=== PATIENT | female | born 1985 | race Two or more races ===

== ENCOUNTER 2018-10-27 03:50 | Outpatient (CLI) | payer OTHER | END 2018-10-27 23:59 | disposition home or self-care (01) | LOC: RAD 03:50 | PROVIDERS: ATTEND Physician Assistant Medical | DX: J32.0 Chronic maxillary sinusitis (principal) | CPT/HCPCS: 70486 ==

== ENCOUNTER 2019-08-13 18:47 | Emergency (ER) | payer BC, OTHER ==
[~2019-08-13] VITALS: Ht 160 cm; Wt 122.7 kg
[2019-08-13 19:14] LABS: BASOPHILS % (AUTO) 0.4 % (0-1); EOSINOPHILS # (AUTO) 0.1 X10'3 (0-0.9); EOSINOPHILS % (AUTO) 0.8 % (0-6); HEMOGLOBIN 13.4 g/dl (12.0-16.0); LYMPHOCYTES # (AUTO) 2.8 X10'3 (1.1-4.8); LYMPHOCYTES % (AUTO) 38.7 % (21-51); MEAN CORPUSCULAR HEMOGLOBIN 29.5 PG (27.0-31.0); MEAN CORPUSCULAR HGB CONC 33.4 g/dL (33.0-36.5); MEAN CORPUSCULAR VOLUME 88.3 FL (78-98); MEAN PLATELET VOLUME 7.4 FL (7.4-10.4); MONOCYTES # (AUTO) 0.3 X10'3 (0-0.9); MONOCYTES % (AUTO) 4.8 % (2-12); NEUTROPHILS % (AUTO) 55.3 % (42-75); PLATELET COUNT 309 X10'3 (140-440); RED BLOOD COUNT 4.53 X10'6 (4.20-5.60); RED CELL DISTRIBUTION WIDTH 13.5 % (11.5-14.5); WHITE BLOOD COUNT 7.2 X10'3 (4.5-11.0)
[2019-08-13 19:28] LABS: ALANINE AMINOTRANSFERASE 58 U/L (12-78); ALBUMIN 4.1 G/DL (3.4-5.0); ALKALINE PHOSPHATASE 75 IU/L (46-116); ANION GAP 12 (8-16); ASPARTATE AMINO TRANSFERASE 45 U/L (10-37); BILIRUBIN,TOTAL 0.3 MG/DL (0.1-1.0); BLOOD UREA NITROGEN 12 MG/DL (7-18); BUN/CREATININE RATIO 11.7 (6.6-38.0); CALCIUM 8.8 MG/DL (8.5-10.1); CHLORIDE 106 MMOL/L (99-107); CREATININE 1.03 MG/DL (0.40-0.90); GLUCOSE 97 MG/DL (70-104); LIPASE 89 U/L (73-393); POTASSIUM 4.3 MMOL/L (3.5-5.1); SODIUM 144 MMOL/L (135-145); TOTAL CARBON DIOXIDE 26.1 MMOL/L (24-32); TOTAL PROTEIN 8.4 G/DL (6.4-8.2); eGFR 63 ML/MIN
[2019-08-13 19:36] LABS: CLARITY,URINE SLIGHTLY CLOUDY (Clear); COLOR,URINE YELLOW (Yellow); GLUCOSE, URINE NEGATIVE (Neg); KETONES,URINE NEGATIVE (Neg); LEUKOCYTE ESTERASE ,URINE NEGATIVE (Neg); NITRITES, URINE NEGATIVE (Neg); OCCULT BLOOD,URINE LARGE (Neg); PH,URINE 5.5 (4.8-8.0); PROTEIN,URINE TRACE mg/dl (Neg); UROBILINOGEN,URINE 0.2 E.U/dL (0.2-1.0)
[2019-08-13] MEDS ORDERED: ketorolac tromethamine 15mg/ml inj. IV ONE (19:40)
[2019-08-13 19:44] LABS: UA COLLECTION TYPE CLN CATCH MIDSTREAM
[2019-08-13 19:46] LABS: BACTERIA,URINE FEW /HPF (Neg); MUCUS STRANDS FEW /LPF (Neg); RBC,URINE 20-50 /HPF (0-2); SQUAMOUS EPITHELIAL CELL,UR MODERATE /LPF (FEW); WBC,URINE NONE SEEN /HPF (0-4)
[2019-08-13 19:50] LABS: URINE HCG NEGATIVE (NEG)
[2019-08-13] MEDS ORDERED: FLO0.4C PO (20:44)
[2019-08-13 20:55] VITALS: BP 124/86
[2019-08-14] MEDS ORDERED: NAPR-56 PO (17:08)
== END 2019-08-13 20:56 | disposition home or self-care (01) ==
LOC: ER 18:48
DX: N20.1 Calculus of ureter (principal); G89.29 Other chronic pain; F32.9 Major depressive disorder, single episode, unspecified; R10.11 Right upper quadrant pain; Z72.89 Other problems related to lifestyle; Z79.899 Other long term (current) drug therapy
CPT/HCPCS: 36415; 74176; 76700; 80053; 81001; 81025; 83690; 85025; 96374; 99285; J1885

== ENCOUNTER 2019-08-14 13:15 | Emergency (ER) | payer OTHER ==
[~2019-08-14] VITALS: Ht 160 cm; Wt 125.9 kg
[~2019-08-14 13:15] MED LIST: FLO0.4C PO
[2019-08-14 14:00] LABS: URINE HCG NEGATIVE (NEG)
[2019-08-14 14:02] LABS: CLARITY,URINE CLOUDY (Clear); COLOR,URINE YELLOW (Yellow); GLUCOSE, URINE NEGATIVE (Neg); KETONES,URINE NEGATIVE (Neg); LEUKOCYTE ESTERASE ,URINE NEGATIVE (Neg); NITRITES, URINE NEGATIVE (Neg); OCCULT BLOOD,URINE MODERATE (Neg); PROTEIN,URINE NEGATIVE (Neg); UROBILINOGEN,URINE 0.2 E.U/dL (0.2-1.0)
[2019-08-14 14:08] LABS: UA COLLECTION TYPE CLN CATCH MIDSTREAM
[2019-08-14 14:18] LABS: SQUAMOUS EPITHELIAL CELL,UR MANY /LPF (FEW)
[2019-08-14 14:19] LABS: BACTERIA,URINE 4+ /HPF (Neg); MUCUS STRANDS FEW /LPF (Neg)
[2019-08-14] MEDS ORDERED: ketorolac trometh. 30mg/ml inj. IV ONE (14:45)
[2019-08-14] MEDS ORDERED: normal saline 1000ML IV soln IVB ONE (14:45)
[2019-08-14] MEDS: LIDOcaine 2% (20 mg/ml) 5ml cardiac syringe IV ONE ×2 (15:10→15:49)
--- NOTE | 2019-08-14 15:19 | NUR ---
PT. REFUSED 2 TIMES TO HAVE LAB DRAW ANY BLOOD. OLGA DELGADO NOTIFIED AND ASKED TO TALK TO HIS PT.
[2019-08-14 15:25] LABS: BASOPHILS % (AUTO) 0.2 % (0-1); EOSINOPHILS % (AUTO) 0.2 % (0-6); HEMATOCRIT 37.5 % (35.0-45.0); HEMOGLOBIN 12.5 g/dl (12.0-16.0); LYMPHOCYTES # (AUTO) 2.1 X10'3 (1.1-4.8); LYMPHOCYTES % (AUTO) 20.7 % (21-51); MEAN CORPUSCULAR HEMOGLOBIN 29.5 PG (27.0-31.0); MEAN CORPUSCULAR HGB CONC 33.3 g/dL (33.0-36.5); MEAN CORPUSCULAR VOLUME 88.6 FL (78-98); MEAN PLATELET VOLUME 7.3 FL (7.4-10.4); MONOCYTES # (AUTO) 0.5 X10'3 (0-0.9); MONOCYTES % (AUTO) 5.1 % (2-12); NEUTROPHILS # (AUTO) 7.3 X10'3 (1.8-7.7); NEUTROPHILS % (AUTO) 73.8 % (42-75); PLATELET COUNT 282 X10'3 (140-440); RED BLOOD COUNT 4.23 X10'6 (4.20-5.60); RED CELL DISTRIBUTION WIDTH 13.8 % (11.5-14.5)
[2019-08-14 15:42] LABS: ALANINE AMINOTRANSFERASE 48 U/L (12-78); ALBUMIN 3.7 G/DL (3.4-5.0); ALBUMIN/GLOBULIN RATIO 0.9 (1.1-1.5); ALKALINE PHOSPHATASE 70 IU/L (46-116); ANION GAP 11 (8-16); ASPARTATE AMINO TRANSFERASE 30 U/L (10-37); BILIRUBIN,TOTAL 0.1 MG/DL (0.1-1.0); BLOOD UREA NITROGEN 14 MG/DL (7-18); BUN/CREATININE RATIO 12.4 (6.6-38.0); CALCIUM 8.9 MG/DL (8.5-10.1); CHLORIDE 105 MMOL/L (99-107); CREATININE 1.13 MG/DL (0.40-0.90); GLUCOSE 120 MG/DL (70-104); POTASSIUM 4.4 MMOL/L (3.5-5.1); SODIUM 142 MMOL/L (135-145); TOTAL CARBON DIOXIDE 25.6 MMOL/L (24-32); TOTAL PROTEIN 7.7 G/DL (6.4-8.2); eGFR 56 ML/MIN
[2019-08-14] MEDS ORDERED: NAPR-56 PO (17:08)
[2019-08-14] MEDS ORDERED: HYDROcodone/acetaminophen 10/325mg tab PO ONE (17:10)
--- NOTE | 2019-08-14 17:35 | NUR ---
pt refused norco 10 says it makes her vomit, she has had bad experiences with norco, doesn't want
[2019-08-14 17:41] VITALS: BP 143/92
== END 2019-08-14 17:43 | disposition home or self-care (01) ==
LOC: ER 13:16
DX: N23 Unspecified renal colic (principal); G89.29 Other chronic pain; R11.2 Nausea with vomiting, unspecified; R42 Dizziness and giddiness; F41.9 Anxiety disorder, unspecified; F32.9 Major depressive disorder, single episode, unspecified; Z79.899 Other long term (current) drug therapy
CPT/HCPCS: 36415; 80053; 81001; 81025; 85025; 96374; 96375; 99285; J1885; J7030

== ENCOUNTER 2019-08-20 02:45 | Observation (INO) | payer BC, OTHER ==
[~2019-08-20] VITALS: Ht 160 cm; Wt 122.7 kg
[~2019-08-20 02:45] MED LIST changes: +NAPR-56 PO
[2019-08-20 03:59] LABS: BASOPHILS % (AUTO) 0.4 % (0-1); EOSINOPHILS # (AUTO) 0.1 X10'3 (0-0.9); EOSINOPHILS % (AUTO) 0.9 % (0-6); HEMATOCRIT 37.6 % (35.0-45.0); HEMOGLOBIN 12.5 g/dl (12.0-16.0); LYMPHOCYTES # (AUTO) 3.4 X10'3 (1.1-4.8); LYMPHOCYTES % (AUTO) 43.4 % (21-51); MEAN CORPUSCULAR HEMOGLOBIN 29.3 PG (27.0-31.0); MEAN CORPUSCULAR HGB CONC 33.3 g/dL (33.0-36.5); MEAN PLATELET VOLUME 7.2 FL (7.4-10.4); MONOCYTES # (AUTO) 0.4 X10'3 (0-0.9); MONOCYTES % (AUTO) 5.4 % (2-12); NEUTROPHILS # (AUTO) 3.9 X10'3 (1.8-7.7); NEUTROPHILS % (AUTO) 49.9 % (42-75); PLATELET COUNT 278 X10'3 (140-440); RED BLOOD COUNT 4.27 X10'6 (4.20-5.60); RED CELL DISTRIBUTION WIDTH 13.9 % (11.5-14.5); WHITE BLOOD COUNT 7.9 X10'3 (4.5-11.0)
[2019-08-20] MEDS ORDERED: ketorolac trometh. 30mg/ml inj. IV STA (03:59)
[2019-08-20] MEDS ORDERED: normal saline 1000ml 1,000 ML IVB ONE (03:59)
[2019-08-20 04:12] LABS: ALANINE AMINOTRANSFERASE 40 U/L (12-78); ALBUMIN 3.8 G/DL (3.4-5.0); ALBUMIN/GLOBULIN RATIO 0.9 (1.1-1.5); ALKALINE PHOSPHATASE 64 IU/L (46-116); ANION GAP 9 (8-16); ASPARTATE AMINO TRANSFERASE 30 U/L (10-37); BILIRUBIN,TOTAL 0.2 MG/DL (0.1-1.0); BLOOD UREA NITROGEN 15 MG/DL (7-18); BUN/CREATININE RATIO 15.8 (6.6-38.0); CALCIUM 8.8 MG/DL (8.5-10.1); CHLORIDE 103 MMOL/L (99-107); CREATININE 0.95 MG/DL (0.40-0.90); GLUCOSE 88 MG/DL (70-104); LIPASE 94 U/L (73-393); POTASSIUM 3.9 MMOL/L (3.5-5.1); SODIUM 139 MMOL/L (135-145); TOTAL CARBON DIOXIDE 26.7 MMOL/L (24-32); TOTAL PROTEIN 7.9 G/DL (6.4-8.2); eGFR 69 ML/MIN
[2019-08-20] MEDS ORDERED: fentaNYL/PF 50MCG/1 ML 2ML syringe IV PRN (04:20)
[2019-08-20] MEDS ORDERED: normal saline 1000ML IV soln IVB ONE (04:20)
[2019-08-20] MEDS ORDERED: ondansetron/PF 4mg/2ml inj IV PRN ×2 (04:20→04:55)
[2019-08-20] MEDS ORDERED: diazepam inj 5 MG/ML inj. IV ONE (04:20)
[2019-08-20] MEDS ORDERED: potassium CL 10mEq/100ml bag 100 ML IV PRN ×2 (04:55)
[2019-08-20] MEDS ORDERED: magnesium 2GM in 50ml NS 50 ML IV PRN (04:55)
[2019-08-20] MEDS ORDERED: mag hydrox/Alum hydrox/simeth 30ml oral suspension PO PRN (04:55)
[2019-08-20] MEDS ORDERED: magnesium hydroxide 30ml (MOM) UD suspension PO PRN (04:55)
[2019-08-20] MEDS ORDERED: magnesium Cl slow-release 64mg tablet PO PRN (04:55)
[2019-08-20] MEDS ORDERED: acetaminophen 325mg tablet PO PRN (04:55)
[2019-08-20] MEDS ORDERED: potassium Cl 20 mEq SR tablet PO PRN ×2 (04:55)
[2019-08-20] MEDS ORDERED: HYDROmorphone 1 mg/ml syringe IV PRN (04:55)
[2019-08-20] MEDS ORDERED: magnesium 4gm in 100ml NS 100 ML IV PRN (04:55)
[2019-08-20 05:44] LABS: URINE HCG NEGATIVE (NEG)
--- NOTE | 2019-08-20 05:53 | NUR ---
TRANSFER TO UPSTAIRS TO TAKE PLACE AFTER SHIFT CHANGE.
[2019-08-20 06:01] LABS: CLARITY,URINE SLIGHTLY CLOUDY (Clear); COLOR,URINE STRAW (Yellow); GLUCOSE, URINE NEGATIVE (Neg); KETONES,URINE NEGATIVE (Neg); LEUKOCYTE ESTERASE ,URINE NEGATIVE (Neg); NITRITES, URINE NEGATIVE (Neg); OCCULT BLOOD,URINE MODERATE (Neg); PROTEIN,URINE NEGATIVE (Neg); UROBILINOGEN,URINE 0.2 E.U/dL (0.2-1.0)
[2019-08-20 06:08] LABS: UA COLLECTION TYPE CLN CATCH MIDSTREAM
[2019-08-20 06:09] LABS: SQUAMOUS EPITHELIAL CELL,UR MANY /LPF (FEW)
[2019-08-20 06:10] LABS: BACTERIA,URINE 2+ /HPF (Neg); RBC,URINE 0-2 /HPF (0-2); WBC,URINE 0-4 /HPF (0-4)
--- NOTE | 2019-08-20 07:00 | NUR ---
Received report from ED RNSoha.
[2019-08-20 07:10] VITALS: BP 151/70
[2019-08-20] MEDS: normal saline 1000ml 1,000 ML IV SCH ×3 (07:42→17:15)
[2019-08-20] MEDS: K and/or MAG REPLACEMENT MC SCH ×2 (08:00→19:36)
[2019-08-20] MEDS: ALPRAZolam 0.5mg tablet PO PRN (08:40)
[2019-08-20] MEDS: ketorolac trometh. 30mg/ml inj. IV PRN ×2 (09:47→17:42)
[2019-08-20] MEDS: tamsulosin 0.4mg capsule PO SCH ×2 (09:47→21:02)
--- NOTE | 2019-08-20 10:50 | NUR ---
Per Dr Burks he is aware patient received dose of 0.4mg Flomax this morning and has a dose ordered for tonight, then medication is once a day HS. Per Dr Burks that is fine to get the extra dose.
[2019-08-20] MEDS ORDERED: ALPR1TAB7 PO (12:12)
[2019-08-20 12:23] VITALS: BP 101/49
--- NOTE | 2019-08-20 14:00 | NUR ---
Pt refused MRSA nasal swab
[2019-08-20] MEDS: cetirizine 10mg tablet PO SCH (17:40)
[2019-08-20] MEDS: acetaminophen 325mg tablet PO PRN (17:41)
[2019-08-20 18:00] VITALS: BP 126/62
--- NOTE | 2019-08-20 18:10 | NUR ---
Problems reprioritized. Patient report given, questions answered & plan of care reviewed with FLORES Malcolm.
--- NOTE | 2019-08-20 19:00 | NUR ---
Patient in room [facility]. I have received report from Azeb TANNER and had the opportunity to ask questions and assume patient care.
[2019-08-21] VITALS (16 sets, daily range): BP systolic 95–150; BP diastolic 52–99
[2019-08-21] MEDS: ketorolac trometh. 30mg/ml inj. IV PRN ×3 (01:38→21:08)
[2019-08-21] MEDS: normal saline 1000ml 1,000 ML IV SCH ×2 (04:25→16:36)
[2019-08-21 06:31] LABS: BASOPHILS % (AUTO) 0.2 % (0-1); EOSINOPHILS # (AUTO) 0.1 X10'3 (0-0.9); EOSINOPHILS % (AUTO) 0.8 % (0-6); HEMATOCRIT 33.5 % (35.0-45.0); HEMOGLOBIN 11.1 g/dl (12.0-16.0); LYMPHOCYTES # (AUTO) 3.4 X10'3 (1.1-4.8); LYMPHOCYTES % (AUTO) 46.8 % (21-51); MEAN CORPUSCULAR HEMOGLOBIN 29.1 PG (27.0-31.0); MEAN CORPUSCULAR HGB CONC 33.2 g/dL (33.0-36.5); MEAN CORPUSCULAR VOLUME 87.8 FL (78-98); MEAN PLATELET VOLUME 7.3 FL (7.4-10.4); MONOCYTES # (AUTO) 0.4 X10'3 (0-0.9); MONOCYTES % (AUTO) 5.2 % (2-12); NEUTROPHILS # (AUTO) 3.4 X10'3 (1.8-7.7); PLATELET COUNT 276 X10'3 (140-440); RED BLOOD COUNT 3.82 X10'6 (4.20-5.60); RED CELL DISTRIBUTION WIDTH 13.8 % (11.5-14.5); WHITE BLOOD COUNT 7.2 X10'3 (4.5-11.0)
--- NOTE | 2019-08-21 06:31 | NUR ---
Problems reprioritized. Patient report given, questions answered & plan of care reviewed with Brit TANNER.
[2019-08-21 06:47] LABS: ALANINE AMINOTRANSFERASE 34 U/L (12-78); ALBUMIN 3.2 G/DL (3.4-5.0); ALKALINE PHOSPHATASE 60 IU/L (46-116); ANION GAP 8 (8-16); ASPARTATE AMINO TRANSFERASE 20 U/L (10-37); BILIRUBIN,TOTAL 0.2 MG/DL (0.1-1.0); BLOOD UREA NITROGEN 12 MG/DL (7-18); BUN/CREATININE RATIO 16.2 (6.6-38.0); CALCIUM 8.5 MG/DL (8.5-10.1); CHLORIDE 108 MMOL/L (99-107); CREATININE 0.74 MG/DL (0.40-0.90); GLUCOSE 94 MG/DL (70-104); POTASSIUM 3.8 MMOL/L (3.5-5.1); SODIUM 143 MMOL/L (135-145); TOTAL CARBON DIOXIDE 26.7 MMOL/L (24-32); TOTAL PROTEIN 6.5 G/DL (6.4-8.2); eGFR > 90 ML/MIN
[2019-08-21] MEDS: K and/or MAG REPLACEMENT MC SCH ×2 (08:00→20:00)
[2019-08-21] MEDS: cetirizine 10mg tablet PO SCH (09:39)
[2019-08-21] MEDS ORDERED: FLUO-12 PO (09:44)
[2019-08-21] MEDS: acetaminophen 325mg tablet PO PRN ×2 (09:52→22:47)
[2019-08-21] MEDS: ALPRAZolam 0.5mg tablet PO PRN (11:09)
--- NOTE | 2019-08-21 11:23 | NUR ---
Dr. Burks called to say that he took a look at the abdominal CT scan and notes that the kidney stone is still in place. States to let the pt. become aware and notify her that he will be on the floor at a later time to discuss the proceeding to remove the stone.
[2019-08-21] MEDS ORDERED: ringers solution, lacted 1,000 ML IV SCH ×2 (17:15→18:29)
[2019-08-21] MEDS ORDERED: famotidine/PF 10 mg/ml inj IV ONE ×2 (17:20→18:40)
[2019-08-21 17:38] LABS: BASOPHILS % (AUTO) 0.4 % (0-1); EOSINOPHILS # (AUTO) 0.1 X10'3 (0-0.9); EOSINOPHILS % (AUTO) 0.9 % (0-6); HEMATOCRIT 37.9 % (35.0-45.0); HEMOGLOBIN 12.7 g/dl (12.0-16.0); LYMPHOCYTES # (AUTO) 2.9 X10'3 (1.1-4.8); LYMPHOCYTES % (AUTO) 38.8 % (21-51); MEAN CORPUSCULAR HEMOGLOBIN 29.5 PG (27.0-31.0); MEAN CORPUSCULAR HGB CONC 33.4 g/dL (33.0-36.5); MEAN CORPUSCULAR VOLUME 88.5 FL (78-98); MEAN PLATELET VOLUME 7.1 FL (7.4-10.4); MONOCYTES # (AUTO) 0.4 X10'3 (0-0.9); MONOCYTES % (AUTO) 4.7 % (2-12); NEUTROPHILS # (AUTO) 4.2 X10'3 (1.8-7.7); NEUTROPHILS % (AUTO) 55.2 % (42-75); PLATELET COUNT 290 X10'3 (140-440); RED BLOOD COUNT 4.29 X10'6 (4.20-5.60); RED CELL DISTRIBUTION WIDTH 13.8 % (11.5-14.5); WHITE BLOOD COUNT 7.5 X10'3 (4.5-11.0)
[2019-08-21 17:51] LABS: ALANINE AMINOTRANSFERASE 37 U/L (12-78); ALBUMIN 3.6 G/DL (3.4-5.0); ALBUMIN/GLOBULIN RATIO 0.9 (1.1-1.5); ALKALINE PHOSPHATASE 66 IU/L (46-116); ANION GAP 8 (8-16); ASPARTATE AMINO TRANSFERASE 27 U/L (10-37); BILIRUBIN,TOTAL 0.3 MG/DL (0.1-1.0); BLOOD UREA NITROGEN 8 MG/DL (7-18); BUN/CREATININE RATIO 10.4 (6.6-38.0); CALCIUM 8.7 MG/DL (8.5-10.1); CHLORIDE 107 MMOL/L (99-107); CREATININE 0.77 MG/DL (0.40-0.90); GLUCOSE 89 MG/DL (70-104); POTASSIUM 4.1 MMOL/L (3.5-5.1); SODIUM 140 MMOL/L (135-145); TOTAL CARBON DIOXIDE 25.5 MMOL/L (24-32); TOTAL PROTEIN 7.8 G/DL (6.4-8.2); eGFR 87 ML/MIN
[2019-08-21] MEDS ORDERED: iohexol 300 MG/1 ML 50ml polymer ONE (17:55)
--- NOTE | 2019-08-21 17:58 | NUR ---
Pt. left the floor to go to OR. Called report to recovery. Pt. stated theat she had 1000 dollars in her purse and that she was worried it would be stolen. traveling secretary called admitting who was directed towards pt.'s room in recovery so thAT PT. CAN PUT HER BELONGINGS IN SAFE.
--- NOTE | 2019-08-21 18:11 | NUR ---
GAVE REPORT TO TITO TANNER.
[2019-08-21] MEDS ORDERED: acetaminophen 1,000mg/100ml IV 100 ML IV PRN (18:30)
[2019-08-21] MEDS ORDERED: meperidine/PF 25mg/ml syringe IV PRN (18:30)
[2019-08-21] MEDS ORDERED: HYDROmorphone inj. 0.5 MG/0.5 ML DISP.SYRIN IV PRN ×2 (18:30)
[2019-08-21] MEDS ORDERED: ondansetron/PF 4mg/2ml inj IV PRN (18:30)
[2019-08-21] MEDS ORDERED: morphine 2 MG/ML inj. syringe IV PRN (18:30)
[2019-08-21] MEDS ORDERED: proCHLORperazine 10 MG/2 ml inj IV PRN (18:30)
[2019-08-21] MEDS ORDERED: morphine 4 MG/ML inj SYRINge IV PRN (18:30)
[2019-08-21] MEDS ORDERED: sevoflurane 250ml liquid IH ONE (18:33)
--- NOTE | 2019-08-21 18:33 | NUR ---
Received report from Brit TANNER. Pt is currently in the OR.
[2019-08-21] MEDS ORDERED: fentaNYL/PF 50MCG/1 ML 2ML syringe ONE (18:42)
[2019-08-21] MEDS ORDERED: midazolam 2 mg/2 ml injection ONE (18:45)
[2019-08-21] MEDS ORDERED: ceFAZolin 1000mg inj ONE ×2 (18:59)
[2019-08-21] MEDS ORDERED: LIDOcaine 2% (20mg/ml) 5ml vial ONE (18:59)
[2019-08-21] MEDS ORDERED: propofol inj 20 ML IV ONE (18:59)
[2019-08-21] MEDS ORDERED: dexamethasone sod phosphate 4mg/ml inj. ONE (19:04)
[2019-08-21] MEDS ORDERED: ondansetron/PF 4mg/2ml inj ONE (19:04)
--- NOTE | 2019-08-21 19:35 | NUR ---
Received from OR via BED , accompanied by Anesthesiologist DR LEOS and report given by Anesthesiolgist. PATIENT WAKING UP, DENIES, V/S WNL, NEUROVASCULAR CHECKS INTACT, 20G PIV LUE, SCD ON, PERPAD CDI MINIMAL DRAINAGE.
--- NOTE | 2019-08-21 20:03 | NUR ---
Received report from Edson in recovery. Pt arrived on the unit in her bed, with her purse. LR was running at 50mls/hr. Pt was on RA, VSS, no signs of distress. Will continue to monitor.
--- NOTE | 2019-08-21 20:05 | NUR ---
PATIENT WAKING UP, DENIES, V/S WNL, NEUROVASCULAR CHECKS INTACT, 20G PIV LUE, SCD ON, PERIPAD CDI MINIMAL DRAINAGE..PATIENT TAKEN TO 354C WITH ALL BELONGINGS AND HOOKED UP TO MONITORS IN ROOM AND REPORT GIVEN TO RN WHO HAS TAKEN OVER PATIENT CARE.I
[2019-08-21] MEDS: tamsulosin 0.4mg capsule PO SCH (20:59)
[2019-08-22] MEDS: ALPRAZolam 0.5mg tablet PO PRN ×2 (01:35→09:51)
[2019-08-22] MEDS: ketorolac trometh. 30mg/ml inj. IV PRN ×2 (05:33→18:56)
[2019-08-22 06:00] LABS: BASOPHILS % (AUTO) 0.2 % (0-1); EOSINOPHILS % (AUTO) 0 % (0-6); HEMATOCRIT 35.4 % (35.0-45.0); HEMOGLOBIN 11.8 g/dl (12.0-16.0); LYMPHOCYTES # (AUTO) 1.1 X10'3 (1.1-4.8); MEAN CORPUSCULAR HEMOGLOBIN 29.2 PG (27.0-31.0); MEAN CORPUSCULAR HGB CONC 33.2 g/dL (33.0-36.5); MEAN PLATELET VOLUME 7.4 FL (7.4-10.4); MONOCYTES # (AUTO) 0.1 X10'3 (0-0.9); MONOCYTES % (AUTO) 1.6 % (2-12); NEUTROPHILS # (AUTO) 6.8 X10'3 (1.8-7.7); NEUTROPHILS % (AUTO) 84.2 % (42-75); PLATELET COUNT 307 X10'3 (140-440); RED BLOOD COUNT 4.02 X10'6 (4.20-5.60); RED CELL DISTRIBUTION WIDTH 13.9 % (11.5-14.5); WHITE BLOOD COUNT 8.1 X10'3 (4.5-11.0)
[2019-08-22 06:18] LABS: ALANINE AMINOTRANSFERASE 35 U/L (12-78); ALBUMIN 3.4 G/DL (3.4-5.0); ALBUMIN/GLOBULIN RATIO 0.8 (1.1-1.5); ALKALINE PHOSPHATASE 62 IU/L (46-116); ANION GAP 7 (8-16); ASPARTATE AMINO TRANSFERASE 19 U/L (10-37); BILIRUBIN,TOTAL 0.2 MG/DL (0.1-1.0); BLOOD UREA NITROGEN 10 MG/DL (7-18); BUN/CREATININE RATIO 11.1 (6.6-38.0); CALCIUM 8.4 MG/DL (8.5-10.1); CHLORIDE 107 MMOL/L (99-107); GLUCOSE 161 MG/DL (70-104); POTASSIUM 3.9 MMOL/L (3.5-5.1); SODIUM 140 MMOL/L (135-145); TOTAL CARBON DIOXIDE 25.8 MMOL/L (24-32); TOTAL PROTEIN 7.6 G/DL (6.4-8.2); eGFR 73 ML/MIN
--- NOTE | 2019-08-22 06:30 | NUR ---
Problems reprioritized. Patient report given, questions answered & plan of care reviewed with Jenise TANNER.
[2019-08-22] MEDS: normal saline 1000ml 1,000 ML IV SCH ×2 (06:55→09:55)
[2019-08-22 07:07] VITALS: BP 132/80
[2019-08-22] MEDS: cetirizine 10mg tablet PO SCH (07:45)
[2019-08-22] MEDS: K and/or MAG REPLACEMENT MC SCH (08:00)
[2019-08-22] MEDS ORDERED: TRAM50TA2 PO (12:21)
[2019-08-22] MEDS ORDERED: OXYB5TAB16 PO (12:21)
[2019-08-22 13:20] VITALS: BP 129/68
--- NOTE | 2019-08-22 18:42 | NUR ---
Problems reprioritized. Patient report given, questions answered & plan of care reviewed with FLORES Payan.
--- NOTE | 2019-08-22 19:13 | NUR ---
Patient in room [facility]. I have received report from Jenise TANNER and had the opportunity to ask questions and assume patient care.
--- NOTE | 2019-08-22 19:25 | NUR ---
Pt left the unit just after 1900. VSS, no signs of distress. Pt had all of her personal belongings and security met us at the [employer] [facility] [employer] with her wallet from the [facility]. All discharge paperwork complete and copies were placed in her chart.
== END 2019-08-22 19:10 | disposition home or self-care (01) ==
LOC: ER 02:46 → ED HOLD 04:55 → SUR 3N 07:10
PROVIDERS: ADMIT Family Medicine; ATTEND Family Medicine
DX: N13.2 Hydronephrosis with renal and ureteral calculous obstruction (principal); F41.9 Anxiety disorder, unspecified; F32.9 Major depressive disorder, single episode, unspecified; G89.29 Other chronic pain; M54.9 Dorsalgia, unspecified; Z79.899 Other long term (current) drug therapy
CPT/HCPCS: 36415; 52352; 74018; 74176; 74420; 80053; 81001; 81025; 82948; 83690; 83735; 85025; 87081; 96374; 96375; 96376; 99284; C1758; C1769; C2617; G0378; J0690; J1100; J1885; J2001; J2250; J2405; J2704; J3010; J3360; J3490; J7030; Q9967; A4402; A4618; A7000; J7120

== ENCOUNTER 2020-04-25 21:40 | Emergency (ER) | payer BC, OTHER ==
[~2020-04-25] VITALS: Ht 160 cm; Wt 129.5 kg
[~2020-04-25 21:40] MED LIST changes: +ALPR1TAB7 PO; -FLO0.4C PO; +FLUO-12 PO; -NAPR-56 PO; +OXYB5TAB16 PO
[2020-04-25] MEDS ORDERED: ONDA8TAB13 PO (23:29)
[2020-04-25] MEDS ORDERED: ondansetron 4mg rapidly disintigrating tab PO ONE (23:30)
[2020-04-25] MEDS ORDERED: ketorolac trometh inj. 60 MG/2 ML VIAL IM ONE (23:30)
[2020-04-25 23:52] VITALS: BP 133/78
== END 2020-04-25 23:54 | disposition home or self-care (01) ==
LOC: ER 21:40
DX: G43.909 Migraine, unspecified, not intractable, without status migrainosus (principal); R11.0 Nausea; G89.29 Other chronic pain; F41.9 Anxiety disorder, unspecified; F32.9 Major depressive disorder, single episode, unspecified; Z87.442 Personal history of urinary calculi; Z72.89 Other problems related to lifestyle; Z79.899 Other long term (current) drug therapy
CPT/HCPCS: 96372; 99283; J1885

== ENCOUNTER 2020-04-27 19:35 | Emergency (ER) | payer BC ==
[~2020-04-27] VITALS: Ht 160 cm; Wt 127.0 kg
[~2020-04-27 19:35] MED LIST changes: +ONDA8TAB13 PO
[2020-04-27 19:50] VITALS: BP 116/113
[2020-04-27] MEDS ORDERED: ketorolac trometh. 30mg/ml inj. IM ONE (20:55)
== END 2020-04-27 21:06 | disposition home or self-care (01) ==
LOC: ER 19:35
DX: R07.81 Pleurodynia (principal); G89.29 Other chronic pain; Z87.442 Personal history of urinary calculi; Z72.89 Other problems related to lifestyle; Z79.899 Other long term (current) drug therapy
CPT/HCPCS: 71046; 96372; 99284; J1885

== ENCOUNTER 2021-09-22 18:37 | Emergency (ER) | payer BC, OTHER ==
[~2021-09-22] VITALS: Ht 162.6 cm; Wt 119.9 kg
[2021-09-22 19:38] LABS: BASOPHILS % (AUTO) 0.3 % (0-1); EOSINOPHILS # (AUTO) 0.1 X10'3 (0-0.9); EOSINOPHILS % (AUTO) 0.7 % (0-6); HEMATOCRIT 40.3 % (35.0-45.0); HEMOGLOBIN 13.6 g/dl (12.0-16.0); LYMPHOCYTES # (AUTO) 3.1 X10'3 (1.1-4.8); LYMPHOCYTES % (AUTO) 38.5 % (21-51); MEAN CORPUSCULAR HEMOGLOBIN 29.1 PG (27.0-31.0); MEAN CORPUSCULAR HGB CONC 33.8 g/dL (33.0-36.5); MEAN CORPUSCULAR VOLUME 86.3 FL (78-98); MEAN PLATELET VOLUME 7.3 FL (7.4-10.4); MONOCYTES # (AUTO) 0.4 X10'3 (0-0.9); MONOCYTES % (AUTO) 4.9 % (2-12); NEUTROPHILS # (AUTO) 4.5 X10'3 (1.8-7.7); NEUTROPHILS % (AUTO) 55.6 % (42-75); PLATELET COUNT 280 X10'3 (140-440); RED BLOOD COUNT 4.67 X10'6 (4.20-5.60); RED CELL DISTRIBUTION WIDTH 14.2 % (11.5-14.5); WHITE BLOOD COUNT 8.1 X10'3 (4.5-11.0)
[2021-09-22 19:49] LABS: ALANINE AMINOTRANSFERASE 39 U/L (12-78); ALBUMIN 3.5 G/DL (3.4-5.0); ALBUMIN/GLOBULIN RATIO 0.7 (1.1-1.5); ALKALINE PHOSPHATASE 86 IU/L (46-116); ANION GAP 10 (8-16); ASPARTATE AMINO TRANSFERASE 32 U/L (10-37); BILIRUBIN,TOTAL 0.2 MG/DL (0.1-1.0); BLOOD UREA NITROGEN 11 MG/DL (7-18); BUN/CREATININE RATIO 16.4 (6.6-38.0); CHLORIDE 101 MMOL/L (99-107); CREATININE 0.67 MG/DL (0.40-0.90); GLUCOSE 125 MG/DL (70-104); POTASSIUM 3.9 MMOL/L (3.5-5.1); SODIUM 138 MMOL/L (135-145); TOTAL CARBON DIOXIDE 27.4 MMOL/L (24-32); TOTAL PROTEIN 8.4 G/DL (6.4-8.2); eGFR > 90 ML/MIN
[2021-09-22 19:54] VITALS: BP 148/100
[2021-09-22 20:13] LABS: CALCIUM 9.3 MG/DL (8.5-10.1)
[2021-09-22] MEDS ORDERED: AZIT-83 PO ×3 (20:47→20:48)
[2021-09-22] MEDS ORDERED: ALBU8.5H17 IH ×3 (20:47→20:48)
[2021-09-22] MEDS ORDERED: azithromycin 250mg tablet PO ONE (20:50)
== END 2021-09-22 21:23 | disposition home or self-care (01) ==
LOC: ER 18:38
DX: J40 Bronchitis, not specified as acute or chronic (principal); G89.29 Other chronic pain; M54.9 Dorsalgia, unspecified; F31.9 Bipolar disorder, unspecified; Z87.442 Personal history of urinary calculi; E11.9 Type 2 diabetes mellitus without complications; Z79.899 Other long term (current) drug therapy; Z79.2 Long term (current) use of antibiotics
CPT/HCPCS: 71045; 80053; 85025; 99284

== ENCOUNTER 2022-10-16 16:46 | Emergency (ER) | payer BC, OTHER ==
[~2022-10-16] VITALS: Ht 162.6 cm; Wt 120.5 kg
[~2022-10-16 16:46] MED LIST changes: +ALBU8.5H17 IH; +AZIT-164 PO; +CYCL-1 PO; +HYDR-3973 PO
[2022-10-16] MEDS ORDERED: normal saline 1000ML IV soln IVB ONE ×2 (17:20→20:55)
[2022-10-16] MEDS ORDERED: ondansetron/PF 4mg/2ml inj IV ONE ×2 (17:20→20:55)
[2022-10-16 18:03] LABS: BASOPHILS % (AUTO) 0.2 % (0-1); EOSINOPHILS # (AUTO) 0.1 X10'3 (0-0.9); EOSINOPHILS % (AUTO) 0.4 % (0-6); HEMATOCRIT 42.6 % (35.0-45.0); HEMOGLOBIN 14.1 g/dl (12.0-16.0); LYMPHOCYTES # (AUTO) 1.8 X10'3 (1.1-4.8); LYMPHOCYTES % (AUTO) 12.7 % (21-51); MEAN CORPUSCULAR HEMOGLOBIN 28.9 PG (27.0-31.0); MEAN CORPUSCULAR HGB CONC 33.1 g/dL (33.0-36.5); MEAN CORPUSCULAR VOLUME 87.2 FL (78-98); MEAN PLATELET VOLUME 7.1 FL (7.4-10.4); MONOCYTES # (AUTO) 1.4 X10'3 (0-0.9); MONOCYTES % (AUTO) 9.7 % (2-12); NEUTROPHILS # (AUTO) 10.9 X10'3 (1.8-7.7); PLATELET COUNT 314 X10'3 (140-440); RED BLOOD COUNT 4.88 X10'6 (4.20-5.60); RED CELL DISTRIBUTION WIDTH 13.5 % (11.5-14.5); WHITE BLOOD COUNT 14.1 X10'3 (4.5-11.0)
[2022-10-16 18:26] LABS: ALANINE AMINOTRANSFERASE 49 U/L (12-78); ALBUMIN 3.8 G/DL (3.4-5.0); ALBUMIN/GLOBULIN RATIO 0.9 (1.1-1.5); ALKALINE PHOSPHATASE 71 IU/L (46-116); ANION GAP 13 (8-16); BILIRUBIN,TOTAL 0.3 MG/DL (0.1-1.0); BLOOD UREA NITROGEN 18 MG/DL (7-18); BUN/CREATININE RATIO 21.4 (10.0-20.0); CALCIUM 9.4 MG/DL (8.5-10.1); CHLORIDE 103 MMOL/L (99-107); CREATININE 0.84 MG/DL (0.40-0.90); GLUCOSE 106 MG/DL (70-104); LIPASE 69 U/L (73-393); MAGNESIUM 1.7 MG/DL (1.5-2.4); SODIUM 139 MMOL/L (135-145); TOTAL CARBON DIOXIDE 22.8 MMOL/L (24-32); TOTAL PROTEIN 8.2 G/DL (6.4-8.2); eCRCL 81 ML/MIN; eGFR 78 ML/MIN
[2022-10-16 18:31] LABS: ASPARTATE AMINO TRANSFERASE 31 U/L (10-37); POTASSIUM 4.4 MMOL/L (3.5-5.1)
--- NOTE | 2022-10-16 19:33 | NUR ---
PT PROVIDED WITH COMMODE TO PROVIDE URINE SAMPLE. PT VERBALIZED UNDERSTANDING AND IS STABLE ON HER FEET
[2022-10-16 19:50] LABS: BILIRUBIN,URINE NEGATIVE (Neg); CLARITY,URINE CLOUDY (Clear); COLOR,URINE YELLOW (Yellow); GLUCOSE, URINE NEGATIVE (Neg); KETONES,URINE 15 mg/dl (Neg); LEUKOCYTE ESTERASE ,URINE NEGATIVE (Neg); NITRITES, URINE NEGATIVE (Neg); OCCULT BLOOD,URINE SMALL (Neg); PROTEIN,URINE NEGATIVE (Neg); UROBILINOGEN,URINE 0.2 E.U/dL (0.2-1.0)
[2022-10-16 19:59] LABS: UA COLLECTION TYPE CLN CATCH MIDSTREAM
[2022-10-16 20:00] LABS: HCG SERUM QL NEGATIVE
[2022-10-16 20:01] LABS: SQUAMOUS EPITHELIAL CELL,UR MANY /LPF (FEW)
[2022-10-16 20:03] LABS: BACTERIA,URINE 3+ /HPF (Neg)
[2022-10-16] MEDS ORDERED: ketorolac trometh. 30mg/ml inj. IV ONE (20:30)
[2022-10-16] MEDS ORDERED: normal saline 1000ml 1,000 ML IV ONE (20:30)
[2022-10-16] MEDS ORDERED: CefTRIAXone/D5W-Rocephin 1gm 50 ML IV ONE (20:35)
[2022-10-16] MEDS ORDERED: PANT20TA18 PO (20:55)
[2022-10-16] MEDS ORDERED: pantoprazole 40MG/NS 100ML BAG 100 ML IV ONE (20:55)
[2022-10-16] MEDS ORDERED: ONDA4TAB12 PO (20:55)
[2022-10-16] MEDS ORDERED: pantoprazole 40 MG vial IV ONE (20:55)
[2022-10-16 22:16] VITALS: BP 111/78; PULSE 95; RESP 16; TEMP 98; O2SAT 95
== END 2022-10-16 22:18 | disposition home or self-care (01) ==
LOC: ER 16:47 → EEVIPCON 16:47 → ER 22:18
DX: R10.9 Unspecified abdominal pain (principal); R19.7 Diarrhea, unspecified; R11.2 Nausea with vomiting, unspecified
CPT/HCPCS: 36415; 71045; 74176; 76700; 80053; 81001; 83690; 83735; 84703; 85025; 87077; 87088; 87186; 96361; 96365; 96375; 99285; C9113; J0696; J1885; J2405; J7030

== ENCOUNTER 2022-10-26 13:18 | Emergency (ER) | payer BC ==
[~2022-10-26] VITALS: Ht 162.6 cm; Wt 118.2 kg
[~2022-10-26 13:18] MED LIST changes: +ONDA4TAB12 PO; +PANT20TA18 PO
[2022-10-26 13:29] VITALS: BP 123/85; PULSE 119; RESP 18; TEMP 97.7; O2SAT 97
[2022-10-26 14:37] LABS: BASOPHILS % (AUTO) 0.1 % (0-1); EOSINOPHILS # (AUTO) 0.1 X10'3 (0-0.9); EOSINOPHILS % (AUTO) 1.6 % (0-6); HEMATOCRIT 43.8 % (35.0-45.0); HEMOGLOBIN 14.5 g/dl (12.0-16.0); LYMPHOCYTES % (AUTO) 22.8 % (21-51); MEAN CORPUSCULAR HEMOGLOBIN 28.9 PG (27.0-31.0); MEAN CORPUSCULAR VOLUME 87.6 FL (78-98); MEAN PLATELET VOLUME 7.2 FL (7.4-10.4); MONOCYTES # (AUTO) 0.4 X10'3 (0-0.9); NEUTROPHILS # (AUTO) 6.1 X10'3 (1.8-7.7); NEUTROPHILS % (AUTO) 70.5 % (42-75); PLATELET COUNT 363 X10'3 (140-440); RED CELL DISTRIBUTION WIDTH 13.5 % (11.5-14.5); WHITE BLOOD COUNT 8.7 X10'3 (4.5-11.0)
[2022-10-26 14:48] LABS: ALANINE AMINOTRANSFERASE 31 U/L (12-78); ALBUMIN/GLOBULIN RATIO 0.8 (1.1-1.5); ALKALINE PHOSPHATASE 74 IU/L (46-116); ANION GAP 10 (8-16); ASPARTATE AMINO TRANSFERASE 14 U/L (10-37); BILIRUBIN,TOTAL 0.3 MG/DL (0.1-1.0); BLOOD UREA NITROGEN 15 MG/DL (7-18); BUN/CREATININE RATIO 21.1 (10.0-20.0); CALCIUM 9.3 MG/DL (8.5-10.1); CHLORIDE 103 MMOL/L (99-107); CREATININE 0.71 MG/DL (0.40-0.90); GLUCOSE 106 MG/DL (70-104); LIPASE 75 U/L (73-393); POTASSIUM 4.7 MMOL/L (3.5-5.1); SODIUM 136 MMOL/L (135-145); TOTAL PROTEIN 8.8 G/DL (6.4-8.2); eCRCL 96 ML/MIN; eGFR > 90 ML/MIN
== END 2022-10-26 19:53 | disposition left against medical advice (07) ==
LOC: ER 13:19
DX: R10.9 Unspecified abdominal pain (principal); R11.10 Vomiting, unspecified; Z53.21 Procedure and treatment not carried out due to patient leaving prior to being seen by health care provider
CPT/HCPCS: 36415; 80053; 83690; 85025; 99281

== ENCOUNTER 2023-11-24 23:51 | Emergency (ER) | payer BC, OTHER ==
[~2023-11-24] VITALS: Ht 160 cm; Wt 132.3 kg
[~2023-11-24 23:51] MED LIST changes: -HYDR-3973 PO; +ONDA-243 PO; +ONDA-245 PO; -ONDA4TAB12 PO; -ONDA8TAB13 PO; -OXYB5TAB16 PO; +OXYB5TAB21 PO
[2023-11-24 23:54] VITALS: BP 147/100; PULSE 93; RESP 16; TEMP 97.8; O2SAT 97
== END 2023-11-25 00:49 | disposition home or self-care (01) ==
LOC: EEVIPCON 23:52 → ER 23:52
DX: M25.531 Pain in right wrist (principal); E11.9 Type 2 diabetes mellitus without complications; G89.29 Other chronic pain; F41.9 Anxiety disorder, unspecified; F32.A Depression, unspecified; Z79.2 Long term (current) use of antibiotics; Z79.899 Other long term (current) drug therapy
CPT/HCPCS: 99281

== ENCOUNTER 2024-05-04 06:52 | Outpatient (CLI) | payer BC | END 2024-05-04 23:59 | disposition home or self-care (01) | LOC: RAD 06:52 | PROVIDERS: ATTEND Family Medicine | DX: R05.1 Acute cough (principal) | CPT/HCPCS: 71046 ==